=== PATIENT | male | born 1945 | race Caucasian/White ===

== ENCOUNTER 2020-01-25 10:12 | Emergency (ER) | payer MEDICARE ==
[~2020-01-25] VITALS: Ht 170.2 cm; Wt 71.8 kg
[2020-01-25] MEDS ORDERED: FELO25ER PO (10:20)
[2020-01-25] MEDS ORDERED: SIMV-261 PO (10:20)
[2020-01-25] MEDS ORDERED: HYDR-1475 PO (10:20)
[2020-01-25] MEDS ORDERED: ASPI-728 PO (10:20)
[2020-01-25] MEDS ORDERED: GABA-1181 PO (10:20)
[2020-01-25] MEDS ORDERED: OMEG10005 PO (10:20)
[2020-01-25] MEDS ORDERED: SODIUM CHLORIDE 0.9% 1,000 ML IV ONE (11:15)
[2020-01-25] MEDS ORDERED: FELO5TAB PO (11:35)
[2020-01-25 11:36] LABS: BASOPHILS % (AUTO) 0.3 % (0.0-2.0); EOSINOPHILS % (AUTO) 0.9 % (1.0-6.0); HEMATOCRIT 37.9 % (41-53); HEMOGLOBIN 12.9 g/dL (13.5-17.5); LYMPHOCYTES % (AUTO) 15.5 % (22.0-44.0); MEAN CORPUSCULAR HEMOGLOBIN 30.8 pg (26.0-34.0); MEAN CORPUSCULAR VOLUME 91 fL (80-100); MONOCYTES # (AUTO) 0.7 K/uL (0.1-1.0); MONOCYTES % (AUTO) 10.6 % (2.0-9.0); NEUTROPHILS # (AUTO) 4.7 K/uL (1.8-7.7); NEUTROPHILS % (AUTO) 72.7 % (40.0-70.0); PLATELET COUNT (AUTO) 168 K/uL (150-450); RED BLOOD CELL COUNT(AUTO) 4.18 MIL/uL (4.50-5.90); RED CELL DISTRIBUTION WIDTH 14.2 % (11.5-14.5)
[2020-01-25 11:52] LABS: CALCIUM, TOTAL 8.8 mg/dL (8.8-10.5); CREATININE 1.21 mg/dL (0.60-1.30); POTASSIUM 3.4 mmol/L (3.5-5.1)
[2020-01-25 12:02] LABS: ALBUMIN 3.3 g/dL (3.4-5.0); BILIRUBIN,TOTAL 0.3 mg/dL (0.1-1.0); TOTAL PROTEIN, SERUM 9.4 g/dL (6.4-8.2)
[2020-01-25 13:46] LABS: APPEARANCE,URINE CLOUDY (CLEAR); BILIRUBIN,URINE NEGATIVE (NEGATIVE); GLUCOSE, URINE (UA) NEGATIVE (NEGATIVE); KETONES,URINE NEGATIVE (NEGATIVE); LEUKOCYTE ESTERASE ,URINE LARGE (NEGATIVE); NITRATE,URINE NEGATIVE (NEGATIVE); OCCULT BLOOD,URINE LARGE (NEGATIVE); PROTEIN,URINE NEGATIVE (NEGATIVE); UROBILINOGEN,URINE 0.2 mg/dL (<=1.0)
[2020-01-25 14:10] LABS: BACTERIA,URINE Moderate /HPF (None Seen)
[2020-01-25] MEDS ORDERED: PHENAZOPYRIDINE HCL 100 MG TABLET PO ONE (14:15)
[2020-01-25] MEDS ORDERED: CefTRIAXone 1 GM/DEXTROSE 50 ML IV ONE (14:15)
[2020-01-25] MEDS ORDERED: LEVOFLOXACIN 750 MG TABLET PO ONE (14:15)
[2020-01-25 14:30] VITALS: BP 119/66
== END 2020-01-25 15:05 | disposition home or self-care (01) ==
LOC: EMS 10:24
DX: N39.0 Urinary tract infection, site not specified (principal); I10 Essential (primary) hypertension; E78.00 Pure hypercholesterolemia, unspecified
CPT/HCPCS: 36415; 80053; 81001; 83690; 84484; 85025; 87040; 87077; 87086; 96365; 99284; J0696; J7030